=== PATIENT | female | born 1970 | race Caucasian/White ===

== ENCOUNTER 2023-08-26 00:33 | Emergency (ER) | payer MEDICARE, MEDICAID ==
[~2023-08-26] VITALS: Ht 162.6 cm; Wt 89.1 kg
[2023-08-26 01:29] LABS: BASOPHILS # (AUTO) 0.1 X10'3 (0-0.2); BASOPHILS % (AUTO) 0.6 % (0-1); EOSINOPHILS # (AUTO) 0.1 X10'3 (0-0.9); EOSINOPHILS % (AUTO) 0.6 % (0-6); HEMATOCRIT 55.5 % (35.0-45.0); LYMPHOCYTES # (AUTO) 1.6 X10'3 (1.1-4.8); LYMPHOCYTES % (AUTO) 12.6 % (21-51); MEAN CORPUSCULAR HEMOGLOBIN 30.8 PG (27.0-31.0); MEAN CORPUSCULAR HGB CONC 34.4 g/dL (33.0-36.5); MEAN CORPUSCULAR VOLUME 89.6 FL (78-98); MONOCYTES # (AUTO) 0.3 X10'3 (0-0.9); MONOCYTES % (AUTO) 2.1 % (2-12); NEUTROPHILS # (AUTO) 10.9 X10'3 (1.8-7.7); NEUTROPHILS % (AUTO) 84.1 % (42-75); PLATELET COUNT 274 X10'3 (140-440); RED CELL DISTRIBUTION WIDTH 13.3 % (11.5-14.5)
[2023-08-26 01:33] LABS: HEMOGLOBIN 19.1 g/dl (12.0-16.0)
[2023-08-26] MEDS: ringers solution, lacted 1,000 ML IV ONE ×2 (01:33→02:23)
[2023-08-26] MEDS: ondansetron/PF 4mg/2ml inj IV ONE (01:33)
[2023-08-26 01:35] LABS: ALANINE AMINOTRANSFERASE 38 U/L (12-78); ALBUMIN 4.7 G/DL (3.4-5.0); ALKALINE PHOSPHATASE 162 IU/L (46-116); ANION GAP 21 (8-16); ASPARTATE AMINO TRANSFERASE 24 U/L (10-37); BILIRUBIN,TOTAL 0.8 MG/DL (0.1-1.0); BLOOD UREA NITROGEN 23 MG/DL (7-18); BUN/CREATININE RATIO 16.9 (10.0-20.0); CALCIUM 11.3 MG/DL (8.5-10.1); CHLORIDE 100 MMOL/L (99-107); CREATININE 1.36 MG/DL (0.40-0.90); GLUCOSE 155 MG/DL (70-104); LIPASE 184 U/L (16-77); POTASSIUM 3.2 MMOL/L (3.5-5.1); SODIUM 139 MMOL/L (135-145); TOTAL CARBON DIOXIDE 18.4 MMOL/L (24-32); TOTAL PROTEIN 9.2 G/DL (6.4-8.2); eCRCL 41 ML/MIN; eGFR 41 ML/MIN
[2023-08-26] MEDS: acetaminophen 1,000mg/100ml IV 100 ML IV STA (02:22)
[2023-08-26] MEDS ORDERED: iohexol 300mg/ml 100ml inj. ONE (02:23)
[2023-08-26] MEDS: normal saline 1000ML IV soln IVB ONE (02:25)
[2023-08-26 02:45] LABS: ACETONE NEGATIVE (NEGATIVE)
[2023-08-26] MEDS: potassium CL 10mEq/100ml bag 100 ML IV STA (03:13)
[2023-08-26] MEDS: potassium chloride 10mEq ER tablet PO ONE (03:17)
[2023-08-26 04:03] VITALS: BP 128/87; PULSE 88; RESP 16; TEMP 98; O2SAT 99
== END 2023-08-26 04:05 | disposition home or self-care (01) ==
LOC: ER 00:35
DX: R10.84 Generalized abdominal pain (principal); E87.6 Hypokalemia; R11.2 Nausea with vomiting, unspecified; R19.7 Diarrhea, unspecified; Z86.718 Personal history of other venous thrombosis and embolism
CPT/HCPCS: 36415; 74177; 80053; 82009; 83690; 85025; 96361; 96374; 96375; 99285; J0131; J2405; J7030; J7120; Q9967